=== PATIENT | male | born 1960 | race Caucasian/White ===

== ENCOUNTER 2020-10-15 08:47 | Day surgery (SDC) | payer MEDICARE, OTHER ==
[2020-10-15] VITALS (9 sets, daily range): BP systolic 95–118; BP diastolic 59–74; PULSE 59–70; TEMP 97.5
[~2020-10-15] VITALS: Ht 177.8 cm; Wt 87.6 kg
[~2020-10-15 08:47] MED LIST: ASPIRIN 81M81 MG/TA2 PO; LIPITOR 10MG10 MG PO; LOPRESSOR 550 MG/TAB PO; NIACIN500 M1 PO; PRINIVIL40 MG PO
[2020-10-15] MEDS ORDERED: ASPIRIN 32325 MG/TAB PO (09:09)
[2020-10-15] MEDS ORDERED: PRAVACHOL 40MG40 MG PO (09:10)
[2020-10-15] MEDS ORDERED: ONE-A-DAY ESSE1 EACH PO (09:10)
[2020-10-15 09:28] LABS: HEMATOCRIT 46.6 % (42.0-52.0); HEMOGLOBIN 15.5 g/dl (13.5-18.0); MEAN CELL VOLUME 96 fl (80.0-100.0); MEAN CORPUSCULAR HEMOGLOBIN 32 pg (27.0-31.0); MEAN CORPUSCULAR HGB CONC 33 g/dl (33.0-37.0); MEAN PLATELET VOLUME 10.3 fl (7.4-10.4); PLATELET COUNT 186 K/mm3 (130-400); RED BLOOD COUNT 4.88 M/mm3 (4.20-5.60); REDCELL DISTRIBUTION WIDTH-CV 12.5 % (11.5-14.5)
[2020-10-15 09:32] LABS: PROTHROMBIN TIME 11.6 SECONDS (9.7-12.8)
[2020-10-15 09:38] LABS: CALCIUM 9.2 mg/dL (8.4-10.2); CREATININE, serum 0.92 (0.66-1.25); POTASSIUM 4.9 mmol/L (3.4-5.0)
[2020-10-15] MEDS ORDERED: CEPHALEXIN500 M1 PO (11:05)
[2020-10-15] MEDS ORDERED: FARXIGA5 PO (11:06)
--- NOTE | 2020-10-15 11:30 | NUR ---
Pt sitting up in bed, denies complaints. Paced rhythm on monitor. Dressing over pacer site is clean, dry and intact.
--- NOTE | 2020-10-15 13:57 | NUR ---
Dressing over incision site remains clean, dry and intact. DC instructions reviewed with pt who expressed understanding. INT DC'd with catheter intact. Pt is escorted out by wheelchair to friend's car.
== END 2020-10-15 13:50 | disposition home or self-care (01) ==
LOC: COL.CAR 08:47
PROVIDERS: Internal Medicine Cardiovascular Disease
DX: I25.5 Ischemic cardiomyopathy (principal); I48.91 Unspecified atrial fibrillation; I47.1 Supraventricular tachycardia; Z79.82 Long term (current) use of aspirin; Z45.02 Encounter for adjustment and management of automatic implantable cardiac defibrillator
CPT/HCPCS: C1721; J0690; J2250; J3010; J7030; Q9967